=== PATIENT | female | born 1980 | race Caucasian/White ===

== ENCOUNTER → 2017-12-06 | Outpatient (CLI) | payer MEDICAID | LOC: CIMAGING 12:42 | PROVIDERS: ATTEND Family Medicine | DX: T83.39XS Other mechanical complication of intrauterine contraceptive device, sequela (principal) | CPT/HCPCS: 76856-PO ==

== ENCOUNTER 2018-02-09 05:50 | Day surgery (SDC) | payer MEDICAID ==
[2018-02-09] MEDS ORDERED: LR 1,000 ML IV ONE (06:26)
[2018-02-09] MEDS ORDERED: LIDOCAINE 1% 2 ML INJ ID PRN (06:26)
[2018-02-09] MEDS ORDERED: MIDAZOLAM 2 MG/2 ML VIAL IVP ONE (06:51)
--- NOTE | 2018-02-09 06:51 | PDANEPAE ---
ANE History of Present Illness hysteroscopy, removal of IUD ANE Past Medical History - Cardiovascular History Hx Hypertension: No Hx Arrhythmias: No Hx Chest Pain: No Hx Coronary Artery / Peripheral Vascular Disease: No Hx CHF / Valvular Disease: No Hx Palpitations: No - Pulmonary History Hx COPD: No Hx Asthma/Reactive Airway Disease: No Hx Recent Upper Respiratory Infection: No Hx Oxygen in Use at Home: No Hx Sleep Apnea: No Sleep Apnea Screening Result - Last Documented: Negative - Neurologic History Hx Cerebrovascular Accident: No Hx Seizures: No Hx Dementia: No - Endocrine History Hx Diabetes: No - Renal History Hx Renal Disorders: No - Liver History Hx Hepatic Disorders: No - Neurological & Psychiatric Hx Hx Neurological and Psychiatric Disorders: Yes Neurological / Psychiatric History Comment: hx of depression and anxiety - Cancer History Hx Cancer: No - Congenital Disorder History Hx Congenital Disorders: No - GI History Hx Gastrointestinal Disorders: Yes Gastrointestinal History Comment: IBS - Other Health History Other Health History: none - Chronic Pain History Chronic Pain: No - Surgical History Prior Surgeries: none ANE Review of Systems Review of systems is: negative Review of Systems: - Exercise capacity METS (RN): 5 METS ANE Patient History - Allergies Allergies/Adverse Reactions: No Known Allergies Allergy (Verified 02/09/18 06:23) - Home Medications Home medications: home medication list seen and reviewed Home Medications: Ibuprofen 01/20/18 [Last Taken 02/02/18] - NPO status NPO Status: no food or drink >8 hours NPO Since - Liquids (Date): 02/08/18 NPO Since - Liquids (Time): 23:00 NPO Since - Solids (Date): 02/08/18 NPO Since - Solids (Time): 23:00 - Anes Hx Anes Hx: no prior problems - Smoking Hx Smoking Status: Former smoker - Family Anes Hx Family Anes Hx: none Family Hx Anesthesia Complications: none ANE Labs/Vital Signs - Vital Signs Blood Pressure: 106/79 Heart Rate: 71 Respiratory Rate: 16 O2 Sat (%): 99 Height: 157.48 cm Weight: 48.534 kg ANE Physical Exam - Airway Neck exam: FROM Mallampati Score: Class 1 Mouth exam: normal dental/mouth exam - Pulmonary Pulmonary: no respiratory distress - Cardiovascular Cardiovascular: regular rate and rhythym - ASA Status ASA Status: I ANE Anesthesia Plan Anesthesia Plan: GA w LMA
[2018-02-09] MEDS ORDERED: PROPOFOL 200 MG/20 ML VIAL ONE (07:04)
[2018-02-09] MEDS ORDERED: DEXAMETHASONE 4 MG/ML VIAL ONE (07:04)
[2018-02-09] MEDS ORDERED: fentaNYL 100 MCG/2 ML INJ ONE (07:04)
[2018-02-09] MEDS ORDERED: LIDOCAINE 2% 100 MG/5 ML SYR ONE (07:04)
[2018-02-09] MEDS ORDERED: ONDANSETRON 4 MG/2 ML VIAL ONE ×2 (07:04→08:38)
[2018-02-09] MEDS ORDERED: EPINEPHrine 1 MG/ML INJ ONE (07:08)
[2018-02-09] MEDS ORDERED: BUPIVACAINE 0.25% 30 ML SDV ONE (07:08)
[2018-02-09] MEDS ORDERED: SILVER NITRATE APPLICATOR 1 APPL TP ONE (07:08)
[2018-02-09] MEDS ORDERED: OPIUM/BELLADONNA ALKALO SUPP PR ONE (07:08)
--- NOTE | 2018-02-09 07:26 | PDGENHP ---
History & Physical Chief Complaint: Malpositioned/embedded IUD History of Present Illness: 37 yo came to see me in the office regarding a malpositioned IUD that had been attempted to be removed by multiple providers - interested in hysteroscopic removal, which she had been told she needed. Prior attempts at removal in the office had been painful and rather traumatizing unfortunately. Having some irregular bleeding and intermittent pelvic pain. Pertinent Past, Social, Family History: Non-contributory. Relevant Physical Exam: NAD, RRR, LCTAB. Assessment & Plan Assessment: 37 yo w/ embedded IUD - here for HSC and removal. - No abx indicated. - Routine preop orders. - RBA discussed in office, consents signed in person. - Home today with Rx for [facility]. RANULFO
[2018-02-09] MEDS ORDERED: DEXAMETHASONE 4 MG/ML VIAL IVP PRN (07:49)
[2018-02-09] MEDS ORDERED: HYDROmorphONE/DILAUDID 2 MG/ML INJ IVP PRN (07:49)
[2018-02-09] MEDS ORDERED: oxyCODONE IR 5 MG TAB PO PRN (07:49)
[2018-02-09] MEDS ORDERED: PROMETHAZINE HCL 25 MG/ML INJ IVP PRN (07:49)
[2018-02-09] MEDS ORDERED: NALOXONE HCL 0.4 MG/ML INJ IVP PRN (07:49)
[2018-02-09] MEDS ORDERED: ACETAMINOPHEN 500 MG TAB PO PRN (07:49)
[2018-02-09] MEDS ORDERED: HYDROCODONE/APAP 5/325 TAB PO PRN (07:49)
[2018-02-09] MEDS ORDERED: MEPERIDINE 25 MG/0.5 ML AMP IVP PRN (07:49)
[2018-02-09] MEDS ORDERED: fentaNYL 100 MCG/2 ML INJ IVP PRN (07:49)
--- NOTE | 2018-02-09 07:51 | POSTANESTH ---
Post Anesthetic Evaluation Cardiovascular Status: Normal, Stable, Similar to Pre-Op Cond Respiratory Status: Normal, Stable, Similar to Pre-op Cond. Level of Consciousness/Mental Status: Can Participate in Eval, Mildly Sleepy, Arousable Pain Control: Adequate, Prn Tx Ordered Nausea/Vomiting Control: Adequate, Prn Tx Ordered Complications Possibly Related to Anesthesia: None Noted
[2018-02-09] MEDS ORDERED: KETOROLAC 30 MG/1 ML SDV ONE (08:04)
--- NOTE | 2018-02-09 08:25 | SUROPNOTE ---
[facility] Operative Report - Surgery Date of Operation: 02/09/18 Surgeon: Nelson Johnson Cotton Expert: None Anesthesiologist: Ismael Guerrier MD Anesthesia: LMA Pre-op Diagnosis: Malpositioned/embedded IUD Post-op Diagnosis: Same Procedure: Diagnostic hysteroscopy, removal of IUD Findings: IUD embedded in fundus, difficult removal even hysteroscopically Inf/Abcess present in the surg proc area at time of surgery?: No EBL: Minimal Complications: None Specimen(s): None Technique: Pt taken to OR where time out was performed. No abx given. Prepped and draped in low lith. Spec inserted first and traction placed on visible IUD strings - no movement at all even with significant traction. Paracervical block placed with local w epi. Hysteroscope inserted and pictures taken - IUD clearly embedded in the fundus, both arms to some degree but left almost completely. Cavity also appeared to have abnormal shape, but because our hysteroscope pump was not achieving adequate distension of the cavity, its hard for me to comment confidently re cavity shape. We attempted to manipulate the IUD with hysteroscopic graspers, ultimately the device was dislodged from the myometrium and remove intact in one piece. No acute bleeding followed. All instruments removed and B&O suppository placed. All sponge/lap/needle counts announced as correct. Taken to PACU in stable condition.
[2018-02-09] MEDS: ONDANSETRON 4 MG/2 ML VIAL IVP PRN ×2 (08:39→08:49)
[2018-02-09 09:15] VITALS: BP 109/66
== END 2018-02-09 09:25 | disposition home or self-care (01) ==
LOC: FSGY 05:50
PROVIDERS: ATTEND Obstetrics & Gynecology
PROC: 0UPD8HZ Removal of Contraceptive Device from Uterus and Cervix, Via Natural or Artificial Opening Endoscopic (ICD-10-PCS; principal; 2018-02-09 07:15)
DX: T83.32XA Displacement of intrauterine contraceptive device, initial encounter (principal)
CPT/HCPCS: J0171; J1100; J1885; J2001; J2250; J2405; J2704; J3010